=== PATIENT | female | born 1965 | race Two or more races ===

== ENCOUNTER → 2016-06-29 | Outpatient (CLI) | payer MEDICAID | LOC: FIMAGING 15:25 | DX: Z12.31 Encounter for screening mammogram for malignant neoplasm of breast (principal) | CPT/HCPCS: G0202 ==

== ENCOUNTER 2017-05-18 12:19 | Emergency (ER) | payer MEDICAID ==
[2017-05-18 12:25] VITALS: O2SAT 93
[2017-05-18] MEDS ORDERED: BENZONATATE 100 MG CAP PO ONE (12:50)
--- NOTE | 2017-05-18 13:17 | EDPHY ---
H & P Stated Complaint: H/A, sore throat, cough since 05/15/17. Time Seen by Provider: 05/18/17 13:14 HPI/ROS: HPI: This is a 51-year-old female who presents with Chief Complaint: H/A, sore throat, cough since 05/15/17. Location: Chest Quality: Cough Duration: 5 days Signs and Symptoms: No fever, + dull aching headache, + sore throat, + productive cough of green sputum, + green rhinorrhea, + nasal congestion Timing: Acute, worsening Severity: Moderate Context: Patient has no history of lung disease presents with 4-5 day history of a productive cough of green sputum accompanied by body aches, sore throat, generalized dull aching headache, nasal congestion, green rhinorrhea. Patient did not receive influenza vaccine this year. She has been using over-the- counter cough medicines and Advil with no relief. No recent foreign travel. LMP 1-2 weeks ago. Decreased appetite but eating and drinking appropriately. Denies any fever/neck stiffness/abdominal pain/nausea/vomiting/diarrhea/no chest pain/shortness of breath/no wheezing. Modifying Factors: None Comment: ROS: see HPI Constitutional: No fever, no chills, no weight loss Eyes: No blurred vision Respiratory: No shortness of breath, + cough Cardiovascular: No chest pain Gastrointestinal: No nausea, no vomiting, no diarrhea Genitourinary: No dysuria Extremities: No myalgias Neurologic: No weakness, no numbness Skin: No rashes Hematologic: No bruising, no bleeding MEDICAL/SURGICAL/SOCIAL HISTORY: Medical history: Right knee osteoarthritis. Does not take any regular medications. Surgical history: Cholecystectomy Social history: Employed. CONSTITUTIONAL: Polite and cooperative female, awake and alert, no obvious distress HEENT: Atraumatic and normocephalic, PERRL, EOMI. Tympanic membranes clear. nares patent with erythematous mucosa and green rhinorrhea. Mild maxillary bilateral sinus pressure. Oropharynx clear, no exudate and moist pink mucosa. Airway patent. No lymphadenopathy. No meningismus. Cardiovascular: Normal S1/S2, mild tachycardia, regular rhythm, without murmur rub or gallop. PULMONARY/CHEST: Symmetrical and nontender. Clear to auscultation bilaterally. Good air movement. No accessory muscle usage. ABDOMEN: Soft, nondistended, nontender, no rebound, no guarding, no peritoneal signs, no masses or organomegaly. No CVAT. EXTREMITIES: 2/2 pulses, strength 5/5, no deformities, no clubbing, no cyanosis or edema. NEUROLOGICAL: no focal neuro deficits. GCS 15. SKIN: Warm and dry, no erythema. no rash. Good capillary refill. Source: Patient, Family (Daughter) Exam Limitations: No limitations - Personal History LMP (Females 10-55): 8-14 Days Ago Current Tetanus Diphtheria and Acellular Pertussis (TDAP): Yes - Medical/Surgical History Hx Asthma: No Hx Chronic Respiratory Disease: No Hx Diabetes: No Hx Cardiac Disease: No Hx Renal Disease: No Hx Cirrhosis: No Hx Alcoholism: No Hx HIV/AIDS: No Hx Splenectomy or Spleen Trauma: No Other PMH: ? arthritis r knee, gallbadder. - Social History Smoking Status: Never smoked Constitutional: Initial Vital Signs Temperature (C) 37 C 05/18/17 12:20 Heart Rate 102 H 05/18/17 12:20 Respiratory Rate 16 05/18/17 12:20 Blood Pressure 132/74 H 05/18/17 12:20 O2 Sat (%) 93 05/18/17 12:20 O2 Delivery Mode Room Air Allergies/Adverse Reactions: No Known Allergies Allergy (Verified 07/01/15 23:54) Home Medications: Medication Instructions Recorded Herbals/Supplements -Info Only 1 ea PO DAILY 07/02/15 AZITHROMYCIN [Z-PACK] 250 mg PO DAILY #6 tab 05/18/17 Albuterol Sulfate [Proair Hfa] 1 - 2 puffs IH Q4 PRN #1 hfa.aer.ad 05/18/17 Benzonatate [Tessalon Pearles (RX)] 100 mg PO Q6 PRN #15 cap 05/18/17 Medical Decision Making - Diagnostics Imaging Results: Imaging Impressions Chest X-Ray 05/18/17 12:50 Impression: Prominence of perihilar interstitial markings and peribronchial cuffing. Findings are nonspecific but can be seen with bronchitis, reactive airway disease, or viral process. ED Course/Re-evaluation: Influenza test, oral medications, chest x-ray ordered No hypoxia/wheezing. Given Tessalon Perles. Influenza negative. RSV positive. Chest x-ray my read shows no opacity, no effusion, no pneumothorax, no wide mediastinum Advised albuterol inhaler, antitussive and will start antibiotics due to green sputum and worsening of symptoms. This patient was seen under the supervision of my secondary supervising physician. I evaluated care for this patient independently. Differential Diagnosis: Differential diagnosis includes but is not limited to upper respiratory infection, sinusitis, bronchitis, influenza, pneumonia. - Data Points Laboratory Results: 05/18/17 05/18/17 13:46 12:20 Nasal Influenza A PCR NEGATIVE FOR FLU A Cancelled (NEGATIVE) Nasal Influenza B PCR NEGATIVE FOR FLU B Cancelled (NEGATIVE) RSV (PCR) RSV DETECTED H (NEGATIVE) Medications Given: Discontinued Medications Benzonatate (Tessalon Pearles) 200 mg PO EDNOW ONE Stop: 05/18/17 12:51 Last Admin: 05/18/17 13:00 Dose: 200 mg Departure - Departure Disposition: Home, Routine, Self-Care Clinical Impression: Bronchitis Sinusitis Qualifiers: Sinusitis location: unspecified location Chronicity: acute Recurrence: non- recurrent Qualified Code(s): J01.90 - Acute sinusitis, unspecified Condition: Good Instructions: Sinusitis (ED), Acute Bronchitis (ED) Additional Instructions: Chest x-ray today did not show any signs of pneumonia. It appears that you have bronchitis as well as a sinus infection. Drink a minimum 64 oz of liquids per day. Take [id number] Mucinex as needed for congestion. Use the Albuterol inhaler every 4 hr as needed for shortness of breath or wheezing. Take Azithromycin as directed. Use Tessalon Perles every 6 hr as needed for cough. If symptoms do not improve in the next 7-10 days, follow-up with your primary care provider. Referrals: Cassie Olson MD [Primary Care Provider] - As per Instructions Prescriptions: Albuterol Sulfate [Proair Hfa] 1 - 2 puffs IH Q4 PRN #1 hfa.aer.ad PRN Reason: Short Of Breath/Dyspnea AZITHROMYCIN [Z-PACK] 250 mg PO DAILY #6 tab Benzonatate [Tessalon Pearles (RX)] 100 mg PO Q6 PRN #15 cap PRN Reason: Cough, Moderate
[2017-05-18 13:35] VITALS: BP 130/76; PULSE 73; RESP 18; TEMP 99.1
== END 2017-05-18 14:11 | disposition home or self-care (01) ==
DX: J20.9 Acute bronchitis, unspecified (principal); J01.90 Acute sinusitis, unspecified

== ENCOUNTER 2018-09-21 17:00 | Emergency (ER) | payer MEDICAID | END 2018-09-21 18:42 | disposition home or self-care (01) ==